=== PATIENT | male | born 1980 | race Caucasian/White ===

== ENCOUNTER 2023-01-21 22:39 | Emergency (ER) | payer MEDICAID, OTHER ==
[~2023-01-21] VITALS: Ht 165.1 cm; Wt 110.4 kg
[2023-01-22 02:54] LABS: Basophils # (auto) 0.1 10 ^3/uL (0-0.2); Basophils % (auto) 1.2 % (0.0-2.0); Eosinophils # (auto) 0.2 10 ^3/uL (0-0.8); Eosinophils % (auto) 2.8 % (0.0-7.0); Hemoglobin 16.3 g/dL (13.5-17.5); Lymphocytes # (auto) 2.1 10 ^3/uL (0.4-5.4); Lymphocytes % (auto) 25.1 % (10.0-50.0); Mean Corpuscular Hemoglobin 29.4 pg (28.0-32.0); Mean Corpuscular Hgb Conc. 33.3 g/dL (32.0-36.0); Mean Corpuscular Volume 88.4 fL (80.0-100.0); Monocytes # (auto) 0.6 10 ^3/uL (0-1.3); Monocytes % (auto) 6.7 % (0.0-12.0); Neutrophils # (auto) 5.3 10 ^3/uL (1.6-8.6); Neutrophils % (auto) 64.2 % (37.0-80.0); Nucleated Red Blood Cells % 0.2 %; Red Blood Cells 5.54 10^6/uL (4.5-5.90); Red Cell Distribution Width 14.9 % (11.8-14.3); White Blood Cell 8.3 10^3/uL (4.4-10.8)
[2023-01-22 03:12] LABS: Albumin 3.8 g/dL (3.4-5.0); Calcium 8.9 mg/dL (8.5-10.1); Magnesium 2.5 mg/dL (1.6-2.6); Potassium 4.1 mmol/L (3.5-5.1)
[2023-01-22 03:14] LABS: BUN/Creatinine Ratio 10.7 (10.0-20.0)
[2023-01-22 03:16] LABS: Bilirubin, Total 0.4 mg/dL (0.2-1.0); Total Protein 7.9 g/dL (6.4-8.2)
[2023-01-22 03:27] LABS: Partial Thromboplastin Time 29.6 sec (24.6-33.4)
[2023-01-22 06:35] VITALS: BP 145/97
== END 2023-01-22 06:35 | disposition home or self-care (01) ==
LOC: ER 22:39
DX: N18.9 Chronic kidney disease, unspecified (principal); R03.0 Elevated blood-pressure reading, without diagnosis of hypertension; R04.0 Epistaxis; R74.01 Elevation of levels of liver transaminase levels
CPT/HCPCS: 36415; 80053; 83735; 83880; 84484; 85025; 85610; 85730; 93005

== ENCOUNTER 2025-05-25 19:43 | Emergency (ER) | payer MEDICAID ==
[~2025-05-25] VITALS: Ht 165.1 cm; Wt 111.6 kg
--- NOTE | 2025-05-25 20:28 | ED.PDOC ---
HPI Allergic reaction HPI Comments This patient is a severely morbidly obese 44 y/o M presents with c/c of generalized red rash, with associated itchiness sensation. Endorsement of 1x day history. Denies any throat swelling, shortness of breath, fever, chills, or further associated symptoms. Patient has a history of urticarial rashes or allergic reactions at all. Patient states the rash came on and has been relatively consistent. Patient presents with a urticarial like plaque rash. Patient was hypertensive and tachycardic at arrival. Chief Complaint: Allergic Reaction Time Seen by MD: 20:20 Reviewed Notes: Nurses Notes, Medications, Allergies Information Source: Patient Mode of Arrival: Ambulatory Severity: Moderate Rash: Moderate SOB: None Difficulty swallowing: None Pruritus: Mild Timing: Hours Duration: Since onset Prehospital treatment: None Location: Abdomen, Arm, Back, Chest Exposed to: Unknown History of: Urticaria Modyifying Factors: None Associated Sign and Symptoms: None Past Medical History PAST MEDICAL HISTORY: Denies Surgical History: Denies all surgeries Family History Family History: Unknown Social History Smoker: Non-Smoker Alcohol: Denies ETOH Use Drugs: Denies Drug Use Lives In: Home Constitutional: denies: chills, diaphoresis, fatigue, fever, malaise, sweats, weakness, others EENTM: denies: blurred vision, double vision, ear bleeding, ear discharge, ear drainage, ear pain, ear ringing, eye pain, eye redness, hearing loss, mouth pain, mouth swelling, nasal discharge, nose bleeding, nose congestion, nose pain, photophobia, tearing, throat pain, throat swelling, voice changes, others Respiratory: denies: cough, hemoptysis, orthopnea, SOB at rest, shortness of breath, SOB with excertion, stridor, wheezing, others Cardiovascular: denies: chest pain, dizzy spells, diaphoresis, Dyspnea on exertion, edema, irregular heart beat, left arm pain, lightheadedness, palpitations, PND, syncope, others Gastrointestinal: denies: abdomen distended, abdominal pain, blood streaked bowels, constipated, diarrhea, dysphagia, difficulty swallowing, hematemesis, melena, nausea, poor appetite, poor fluid intake, rectal bleeding, rectal pain, vomiting, others Genitourinary: denies: burning, dysuria, flank pain, frequency, hematuria, incontinence, penile discharge, penile sore, pain, testicle pain, testicle swelling, urgency, others Neurological: denies: dizziness, fainting, headache, left sided numbness, left sided weakness, numbness, paresthesia, pre-existing deficit, right sided numbness, right sided weakness, seizure, speech problems, tingling, tremors, weakness, others Musculoskeletal: denies: back pain, gout, joint pain, joint swelling, muscle pain, muscle stiffness, neck pain, others Integumetry: reports: rash (Urticarial in presentation); denies: bruises, change in color, change in hair/nails, dryness, laceration, lesions, lumps, wounds, others Allergic/Immunocompromised: denies: Difficulty Healing, Frequent Infections, H karishma, Itching, others Hematologic/Lymphatic: denies: anemia, blood clots, easy bleeding, easy bruising, swollen glands, others Endocrine: denies: excessive hunger, excessive sweating, excessive thirst, excessive urination, flushing, intolerance to cold, intolerance to heat, unexplained weight gain, unexplained weight loss, others Psychiatric: denies: anxiety, bipolar disorder, depression, hopeless, panic disorder, schizophrenia, sleepless, suicidal, others All Other Systems: Reviewed and Negative (Comprehensive review of systems are negative unless stated in HPI) Physical Exam General Appearance: Moderate Distress ([id number] distress due to rash anxiety and some mild discomfort.), Obese HEENT: Normal ENT Inspection, Pharynx Normal, TMs Normal Neck: Full Range of Motion, Non-Tender, Normal, Normal Inspection Respiratory: Chest Non-Tender, Lungs Clear, No Accessory Muscle Use, No Respiratory Distress, Normal Breath Sounds Cardiovascular: No Edema, No JVD, No Murmur, No Gallop, Normal Peripheral Pulses, Regular Rate/Rhythm Breast Exam: Deferred Gastrointestinal: No Organomegaly, Non Tender, No Pulsatile Mass, Normal Bowel Sounds, Soft Genitalia: Deferred Pelvic: Deferred Rectal: Deferred Extremities: No calf tenderness, Normal capillary refill, Normal inspection Neurologic: Alert Cerebellar Function: NOT DONE Reflexes: NOT DONE Skin: Rash (Patient displays a plaque-like urticarial rash to his upper arms, chest, back and abdomen. Localized erythema.) Lymphatic: No Adenopathy Was a procedure done? Was a procedure done?: No Differential diagnosis (all) Differential Diagnosis: Anaphylaxis, Angioedema, Contact Dermatitis, Urticaria X-Ray, Labs, Meds, VS Vital Signs Date Time Temp Pulse Resp B/P (MAP) Pulse Ox O2 Delivery O2 Flow Rate FiO2 05/25/25 19:44 98.5 110 18 158/101 95 98.5 X-Ray, Labs, Meds, VS Comment Spent time discussing the condition with the patient. Advised that he has come in contact with something that he has had an allergic response to. Unknown if it is food, environmental or seasonal. Advised patient that if symptoms contin ue, he will need to follow up with the primary care provider for possible public relations specialist referral. Time of 1ST Reevaluation: 21:30 Reevaluation 1ST: Improved Consultation: PCP, Other (customer specialist) Patient Education/Counseling: Diagnosis, Treatment, Need For Follow Up Family Education/Counseling: Diagnosis, Treatment, No Family Present SEPSIS Sepsis Screen Date sepsis recognized/suspect: May 25, 2025 Time Sepsis recognized/suspect: 1945 Recent Procedure: No On Antibiotic Therapy: No Respiratory Rate >20: No Heart Rate >90: No Temp<36 C (96.8 F) or >38.3 C: No SBP <90 or MAP <65 mmHG: No New Acute Mental Status Change: No Is the patient on CPAP, BIPAP,: No Vital Signs Date Time Temp Pulse Resp B/P (MAP) Pulse Ox O2 Delivery O2 Flow Rate FiO2 05/25/25 19:44 98.5 110 18 158/101 95 98.5 Departure 1 Departure Time of Disposition: 21:31 Impression: Primary Impression: Urticarial rash Disposition: HOME / SELF CARE / HOMELESS Condition: Stable Additional Instructions: Advised patient utilize medication as needed. Patient should follow up with the primary care provider for discussions related to today's visit and possible public relations specialist referral. e-Prescriptions Diphenhydramine Hcl (Benadryl Allergy) 25 Mg Cap 1 CAP PO Q8HP PRN, #20 CAP 0 Refills Prov: ANMOL SCOTT PAC 05/25/25 Discharged With: Self, Friend Critical Care Note Critical Care Time?: No Stability Stability form required: No Heart Score Heart Score: Heart Score Response (Comments) Value History N/A 0 EKG N/A 0 Age N/A 0 Risk Factors N/A 0 Troponin N/A 0 Total 0 I personally scribed for ANMOL SCOTT PAC ([email or web address]) on 05/25/25 at 20:28. Electronically submitted by Prabhu Bolton ([email or web address]). ANMOL SCOTT PAC May 25, 2025 20:28
[2025-05-25] MEDS ORDERED: DIPH25CA66 PO (21:31)
[2025-05-25 21:43] VITALS: TEMP 98.7
[2025-05-25 21:44] VITALS: PULSE 110; RESP 18; O2SAT 95
[2025-05-25] MEDS: diphenhdrAMINE HCL 50 MG/1 ML VL IM ONE (21:58)
[2025-05-25 23:15] VITALS: BP 146/88; PULSE 105; RESP 18; O2SAT 97
== END 2025-05-25 23:23 | disposition home or self-care (01) ==
LOC: ER 19:43
DX: L50.9 Urticaria, unspecified (principal); E66.01 Morbid (severe) obesity due to excess calories; I10 Essential (primary) hypertension; Z68.41 Body mass index [BMI] 40.0-44.9, adult
CPT/HCPCS: 96372; 99284; J1100; J1200

== ENCOUNTER 2025-05-28 12:43 | Emergency (ER) | payer MEDICAID ==
[~2025-05-28] VITALS: Ht 165.1 cm; Wt 111.8 kg
[~2025-05-28 12:43] MED LIST: DIPH25CA66 PO
[2025-05-28 12:44] VITALS: BP 157/106; PULSE 119; RESP 18; TEMP 98.8; O2SAT 95
--- NOTE | 2025-05-28 13:38 | ED.PDOC ---
HPI Allergic reaction HPI Comments 44-year-old male presents to the ER with a chief complaint of throat pain. Patient reports that he was here on 05/25 2025 and was given a shot of steroids and Benadryl for which subsided his generalized hives symptoms. Denies chest pain shortness of breath Denies inability to move neck, history of meningitis Denies difficulty swallowing nor persistent salivation Denies fevers chills night sweats Denies persistent cough, runny nose, congestion Denies loss of appetite, unintentional weight loss over the past 3 months Denies voice changes Denies history of asthma or seasonal allergies Chief Complaint: Allergic Reaction Time Seen by MD: 13:30 Reviewed Notes: Nurses Notes, Medications, Allergies Allergies: Coded Allergies: Penicillins (Verified Allergy, Unknown, 05/28/25) Home Meds Active Scripts Diphenhydramine Hcl (Benadryl Allergy) 25 Mg Cap, 1 CAP PO Q8HP PRN, #20 CAP 0 Refills Prov:ANMOL SCOTT PAC 05/25/25 Information Source: Patient Mode of Arrival: Ambulatory Severity: Moderate Rash: Moderate SOB: Mild Difficulty swallowing: Mild Pruritus: None Timing: Days Duration: Since onset, Days Prehospital treatment: None Location: Generalized Exposed to: Unknown Developed: Other (Hives) Modyifying Factors: None Associated Sign and Symptoms: None Past Medical History PAST MEDICAL HISTORY: Denies Surgical History: Denies all surgeries Family History Family History: Reviewed,noncontributory to illness, Unknown Social History Smoker: Non-Smoker Alcohol: Denies ETOH Use Drugs: Denies Drug Use Lives In: Home Constitutional: denies: chills, diaphoresis, fatigue, fever, malaise, sweats, weakness, others EENTM: denies: blurred vision, double vision, ear bleeding, ear discharge, ear drainage, ear pain, ear ringing, eye pain, eye redness, hearing loss, mouth pain, mouth swelling, nasal discharge, nose bleeding, nose congestion, nose pain, photophobia, tearing, throat pain, throat swelling, voice changes, others Respiratory: denies: cough, hemoptysis, orthopnea, SOB at rest, shortness of breath, SOB with excertion, stridor, wheezing, others Cardiovascular: denies: chest pain, dizzy spells, diaphoresis, Dyspnea on exertion, edema, irregular heart beat, left arm pain, lightheadedness, palpitations, PND, syncope, others Gastrointestinal: denies: abdomen distended, abdominal pain, blood streaked bowels, constipated, diarrhea, dysphagia, difficulty swallowing, hematemesis, melena, nausea, poor appetite, poor fluid intake, rectal bleeding, rectal pain, vomiting, others Genitourinary: denies: burning, dysuria, flank pain, frequency, hematuria, incontinence, penile discharge, penile sore, pain, testicle pain, testicle swelling, urgency, others Neurological: denies: dizziness, fainting, headache, left sided numbness, left sided weakness, numbness, paresthesia, pre-existing deficit, right sided numbness, right sided weakness, seizure, speech problems, tingling, tremors, weakness, others Musculoskeletal: denies: back pain, gout, joint pain, joint swelling, muscle pain, muscle stiffness, neck pain, others Integumetry: denies: bruises, change in color, change in hair/nails, dryness, laceration, lesions, lumps, rash, wounds, others Allergic/Immunocompromised: reports: Hives Hematologic/Lymphatic: denies: anemia, blood clots, easy bleeding, easy bruising, swollen glands, others Endocrine: denies: excessive hunger, excessive sweating, excessive thirst, excessive urination, flushing, intolerance to cold, intolerance to heat, unexplained weight gain, unexplained weight loss, others Psychiatric: denies: anxiety, bipolar disorder, depression, hopeless, panic disorder, schizophrenia, sleepless, suicidal, others All Other Systems: Reviewed and Negative Physical Exam Exam Comments Mmm bilaterally, no signs of angioedema, no drooling, no tripod position. Bilateral tonsillar exudate General Appearance: No Apparent Distress, Normal HEENT: Normal ENT Inspection, Pharynx Normal, TMs Normal Neck: Full Range of Motion, Non-Tender, Normal, Normal Inspection Respiratory: Chest Non-Tender, Lungs Clear, No Accessory Muscle Use, No Respiratory Distress, Normal Breath Sounds Cardiovascular: No Edema, No JVD, No Murmur, No Gallop, Normal Peripheral Pulses, Regular Rate/Rhythm Breast Exam: Deferred Gastrointestinal: No Organomegaly, Non Tender, No Pulsatile Mass, Normal Bowel Sounds, Soft Genitalia: Deferred Pelvic: Deferred Rectal: Deferred Extremities: No calf tenderness, Normal capillary refill, Normal inspection, Normal range of motion, Non-tender, No pedal edema Musculoskeletal : Apperance: Normal Neurologic: Alert, bank and savings securities trader II-XII nml as Tested, No Motor Deficits, Normal Affect, Normal Mood, No Sensory Deficits Cerebellar Function: Normal Reflexes: Normal Skin: Dry, Normal Color, Warm Lymphatic: No Adenopathy Was a procedure done? Was a procedure done?: No Differential diagnosis (all) Differential Diagnosis: N/A X-Ray, Labs, Meds, VS Vital Signs Date Time Temp Pulse Resp B/P (MAP) Pulse Ox O2 Delivery O2 Flow Rate FiO2 05/28/25 12:44 98.8 119 18 157/106 95 98.8 Lab Test 05/28/25 13:35 Range/Units Group A Streptococcus Rapid Positive X-Ray, Labs, Meds, VS Comment 44-year-old male presents to the ER with a chief complaint of allergic reaction. Patient arrives alert and oriented, ABC's intact, afebrile, vital signs stable, saturating well in room air Strep screen was ordered Patient presents with a chief complaint of a sore throat. After review of systems and physical examination there are no no concerns or red flags for peritonsillar abscess, abscess formation, epiglottitis, retropharyngeal abscess formation or airway obstruction. No concerns for peritonsillar abscess as patient denies severe sore throat, muffled or hot potato voice, and difficulty handling secretions. No concerns for abscess formation as the soft palate is symmetrical and there is no displacement of the uvula and the uvula is also midline. No concerns for epiglottitis as patient denies severe sore throat, dysphagia, muffled voice, patient is not drooling nor is patient in tripod position. No signs of retropharyngeal abscess formation as patient has no fevers, stiff neck, drooling no stridor No signs of airway obstruction as patient denies sensation of foreign body vital signs stable on room air. Ordered rapid strep test and results were + Exam/test findings consistent with strep throat infection. Encouraged fluid intake Acetaminophen to reduce pain/fever NSAIDs to reduce pain/fever Nonpharmacological recommendations given Warm salt water gargles Throat lozenges Humidified air Return precautions given Worsening pain Fevers past 48 hours after antibiotics Any neck pain, headache, vision issues, or other concerns Additional MDM Review of External, Non-ED records: External records reviewed. Discussion with independent historian (EMS, family) history obtained from the patient/parents (if applicable) at bedside Chronic conditions affecting care: None Social determinants of health affecting care: None Consideration of admission (observation or admission): I considered escalation of care to admission for this patient, however given the reassuring workup, the patient is safe for outpatient management. Discussion with the Radiology: No Tests considered but not performed: Prescription medication considered but not given: 12 lead EKG interpretation: Time of 1ST Reevaluation: 14:00 Reevaluation 1ST: Unchanged Time of 2ND Reevaluation: 14:25 Reevaluation 2ND: Improved Patient Education/Counseling: Diagnosis, Treatment, Prognosis Family Education/Counseling: No Family Present SEPSIS Sepsis Screen Date sepsis recognized/suspect: May 28, 2025 Time Sepsis recognized/suspect: 1248 Recent Procedure: No On Antibiotic Therapy: No Respiratory Rate >20: No Heart Rate >90: Yes Temp<36 C (96.8 F) or >38.3 C: No SBP <90 or MAP <65 mmHG: No New Acute Mental Status Change: No Is the patient on CPAP, BIPAP,: No Vital Signs Date Time Temp Pulse Resp B/P (MAP) Pulse Ox O2 Delivery O2 Flow Rate FiO2 05/28/25 12:44 98.8 119 18 157/106 95 98.8 Departure 1 Departure Time of Disposition: 14:26 Impression: Primary Impression: Strep throat Disposition: 01 HOME / SELF CARE / HOMELESS Condition: Stable e-Prescriptions Ibuprofen Micronized (Ibuprofen) 800 Mg Tab 800 MG PO Q8HP PRN for 10 Days, #30 TAB 0 Refills Prov: TIMMY TOSCANO NP 05/28/25 Azithromycin (Azithromycin) 250 Mg Tab 250 MG PO DAILY MDD 500 for 5 Days, #6 TAB 0 Refills 2 TABLETS ORALLY ON DAY ONE, THEN 1 TABLET ORALLY DAILY FOR 4 DAYS Prov: TIMMY TOSCANO NP 05/28/25 Discharged With: Self Critical Care Note Critical Care Time?: No Stability Stability form required: No Heart Score Heart Score: Heart Score Response (Comments) Value History N/A 0 EKG N/A 0 Age N/A 0 Risk Factors N/A 0 Troponin N/A 0 Total 0 I personally scribed for TIMMY TOSCANO NP ([email or web address]) on 05/28/25 at 13:38. Electronically submitted by Bert Gee ([email or web address]). TIMMY TOSCANO NP May 28, 2025 13:38
[2025-05-28 14:16] LABS: Rapid Strep A Screen-Throat Positive
[2025-05-28] MEDS ORDERED: AZIT-43 PO (14:27)
[2025-05-28] MEDS ORDERED: IBUP-1455 PO (14:27)
== END 2025-05-28 14:30 | disposition home or self-care (01) ==
LOC: ER 12:43
DX: J02.9 Acute pharyngitis, unspecified (principal); L50.9 Urticaria, unspecified; Z88.0 Allergy status to penicillin
CPT/HCPCS: 87880